=== PATIENT | male | born 1960 | race Asian ===

== ENCOUNTER 2018-10-30 08:38 | Outpatient (CLI) | payer OTHER ==
[2018-10-30] MEDS ORDERED: Gadobenate Dimeglumine 529 MG/1 ML (20ML VIAL) ONE (09:48)
--- NOTE | 2018-10-30 17:01 | MRI ---
MRI OF PELVIS (PROSTATE) WITH AND WITHOUT IV CONTRAST 10/30/18 HISTORY: 58-year-old male with elevated PSA (6.94 on 10/16/18). Benign prostatic hyperplasia with lower urinary tract symptoms. TECHNIQUE: Multiplanar and multisequence MRI of the pelvis was performed with and without IV contrast using the prostate protocol. Review was also performed on an independent 3D workstation. FINDINGS: The prostate measures 5 x 3.5 x 3.6 cm with a volume of 33 mL. No focal abnormal area of restricted diffusion is seen in the peripheral zone. No lentiform area of a bnormally decreased T2 signal is noted in the transitional zone. No focal arterial enhancing mass is seen. The prostatic capsule is intact. The seminal vesicles are i ntact. No pelvic lymphadenopathy seen. The pelvis sidewall is normal. There is diverticular disease o f the sigmoid colon. No abnormal areas of signal replacement are seen on the T1 weighted sequence to suggest osseous metas tatic disease. IMPRESSION: PI-RADS 2: Low (clinically significant prostate cancer is unlikely to be present). POS: [facility]
== END 2018-10-30 08:39 | disposition home or self-care (01) ==
LOC: TBSIIMAG 08:38
PROVIDERS: ATTEND Urology
DX: N40.1 Benign prostatic hyperplasia with lower urinary tract symptoms (principal); R97.20 Elevated prostate specific antigen [PSA]
CPT/HCPCS: 72197; A9577

== ENCOUNTER 2018-11-20 06:46 | Outpatient (CLI) | payer OTHER ==
[2018-11-20 11:48] LABS: Hemoglobin 16.4 g/dL (14.0-18.0); Mean Corpuscular HGB CONC 33.9 g/dL (32.0-36.0); Mean Corpuscular Hemoglobin 29.7 pg (27.0-31.0); Mean Corpuscular Volume 87.8 fL (78.0-98.0); Mean Platelet Volume 8.7 fL (7.4-10.4); Platelet Count 192 thou/uL (130-400); RBC Distribution Width 11.8 % (11.5-14.5); Red Blood Cell (RBC) Count 5.51 mill/uL (4.70-6.10)
[2018-11-20 11:54] LABS: PTT 33.5 SEC (22.9-36.1)
[2018-11-20 12:00] LABS: Bacteria/HPF None Seen HPF (None Seen); Bilirubin Negative (Negative); Blood, Urine Negative (Negative); Clarity Clear (Clear); Glucose, Urine (Dipstick) Normal (Negative); Leukocyte Negative Leu/uL (Negative); Nitrite Negative (Negative); Protein, Urine (Dipstick) Negative (Neg-Trace); RBC/HPF 0-3 HPF (0-3); Squamous Epithelial None Seen HPF (0-3); Urobilinogen Normal mg/dL (Less than 2); WBC/HPF 0-3 HPF (0-3)
[2018-11-20 12:18] LABS: Anion Gap 12 mmol/L (10-20); BUN (Urea Nitrogen) 12 mg/dL (8.4-25.7); Calc. Creatinine Clearance 0 mL/min (70-130); Calcium 9.1 mg/dL (7.8-10.44); Carbon Dioxide 26 mmol/L (22-29); Chloride 105 mmol/L (98-107); Estimated GFR-MDRD Greater than 90; Glucose 94 mg/dL (70-105); Potassium 3.7 mmol/L (3.5-5.1); Sodium 139 mmol/L (136-145)
--- NOTE | 2018-11-20 17:00 | EKG ---
Test Reason : Blood Pressure : / mmHG Vent. Rate : 064 BPM Atrial Rate : 064 BPM P-R Int : 148 ms QRS Dur : 096 ms QT Int : 382 ms P-R-T Axes : 067 056 065 degrees QTc Int : 394 ms Normal sinus rhythm Possible Anterior infarct , age undetermined Abnormal ECG No previous ECGs available Confirmed by DR. Morgan REICH ([id number]) on 11/20/2018 4:59:35 PM Referred By: AKBAR Confirmed By:DR. Morgan REICH
== END 2018-11-20 06:47 | disposition home or self-care (01) ==
LOC: LABBT 06:46
PROVIDERS: ATTEND Urology
DX: Z01.818 Encounter for other preprocedural examination (principal); N40.1 Benign prostatic hyperplasia with lower urinary tract symptoms; R35.0 Frequency of micturition; R97.20 Elevated prostate specific antigen [PSA]; K42.9 Umbilical hernia without obstruction or gangrene; Z87.891 Personal history of nicotine dependence; Z86.19 Personal history of other infectious and parasitic diseases; Z98.890 Other specified postprocedural states
CPT/HCPCS: 80048; 81001; 85027; 85610; 85730; 87086; 93005; 93010

== ENCOUNTER 2018-12-04 06:03 | Day surgery (SDC) | payer OTHER ==
[2018-11-20 10:20] VITALS: BMI 26.6
[2018-12-04] MEDS ORDERED: Levofloxacin 500 mg/D5W 100 ml Premix Bag ONE (06:34)
[2018-12-04] MEDS ORDERED: cefTRIAXone\\ROCEPHIN 2 GM VIAL ONE (06:34)
[2018-12-04] MEDS ORDERED: Sodium Chloride 0.9% 100 ML ONE (06:35)
[2018-12-04] MEDS ORDERED: Fentanyl 100 MCG/2 ML VIAL ONE ×4 (06:37→06:47)
[2018-12-04] MEDS ORDERED: Midazolam HCl 2 mg/2 ml Vial ONE (06:47)
[2018-12-04] MEDS ORDERED: Phenazopyridine HCl 97.5 MG TABLET ONE (08:31)
--- NOTE | 2018-12-04 09:20 | RAD ---
CHEST TWO VIEWS: HISTORY: Preoperative radiograph. COMPARISON: 11/01/2009 FINDINGS: Two views of the chest show normal sized cardiomediastinal silhouette. There is no evidence of consol idation, mass, or pleural effusion. The bones are unremarkable. IMPRESSION: No evidence of acute cardiopulmonary disease. POS: [facility]
[2018-12-04] MEDS ORDERED: Lidocaine 1% PF 5 ML VIAL ONE (11:52)
[2018-12-04] MEDS ORDERED: PHENYLEPHRINE-NS 100 MCG/ML 10 ML SYRINGE ONE (11:52)
[2018-12-04] MEDS ORDERED: Dexamethasone 20 MG/5 ML VIAL ONE (11:52)
[2018-12-04] MEDS ORDERED: Ketorolac Tromethamine 30 MG/ML VIAL ONE (11:52)
[2018-12-04] MEDS ORDERED: Ondansetron PF 4 MG/2 ML Vial ONE (11:52)
[2018-12-04] MEDS ORDERED: PROPOFOL 200 MG/20 ML VIAL ONE (11:52)
--- NOTE | 2018-12-05 10:03 | OP ---
DATE OF PROCEDURE: 12/04/2018 PREOPERATIVE DIAGNOSES: 1. A 58-year-old male with history of elevated PSA, MRI 3-T demonstrating PI- RADS 5 lesion. 2. History of benign prostatic hyperplasia. POSTOPERATIVE DIAGNOSES: 1. A 58-year-old male with history of elevated PSA, MRI 3-T demonstrating PI- RADS 5 lesion. 2. History of benign prostatic hyperplasia. PROCEDURES PERFORMED: Cystoscopy, flexible; transrectal ultrasound volume study ; 12 core needle biopsy; MRI fusion biopsy of region of interest. ANESTHESIA: LMA. COMPLICATIONS: None apparent. DISPOSITION: To recovery room in stable condition. SPECIMEN: 12 core standard prostate biopsy, four cores from region of interest. INTRAOPERATIVE FINDINGS: 1. Bilobar hyperplasia of the prostate, mildly obstructing. 2. UOs about 3 to 4 mm proximal to the bladder neck. 3. No evidence of bladder lesion. 4: Prostate volume 29 g DESCRIPTION OF PROCEDURE: The patient was taken to the operating room, placed in a supine position with the genital area prepped and draped in the usual surgical sterile fashion. He was provided broad-spectrum antibiotics. His preop urine culture is negative. A flexible cystoscope was passed after genital area was formally prepped and draped demonstrating no evidence of urethral stricture. Bilobar hyperplasia of the prostate was noted demonstrating mild obstruction. There was no evidence of intravesical median lobe. No bladder lesion. No stones noted. The ureteral orifices were identified in normal orthotopic position about 3 to 4 mm proximal to the bladder neck. At this time, the flexible cystoscope was removed , and we transitioned the patient to a lateral decubitus position with pressure points padded and protected. A standard transrectal ultrasound volume study was performed first. Digital rectal exam demonstrated no discrete nodularity of concern. We performed a volume study first demonstrating urethral length of 3.76 cm, width of 4.6, height of 3.1 cm with prostate volume estimated to be 29 g. At this time, we then transitioned to our MRI fusion biopsy protocol. The region of interest was found demonstrating that it was 15 mm on the MRI. After the images were appropriately fused, we obtained four cores from the region of interest targeted. Subsequently, we then performed a 12 standard core prostate biopsy in the usual fashion. He tolerated the procedure well. He was transported to the recovery room in stable condition. He will be discharged with ciprofloxacin 500 mg one p.o. b.i.d. for 5 days. He is to continue his Flomax, follow up next week to review pathology. Job ID: [id number] [id number]
== END 2018-12-04 10:40 | disposition home or self-care (01) ==
LOC: SDC 06:03
PROVIDERS: ATTEND Urology
PROC: 0VB03ZX Excision of Prostate, Percutaneous Approach, Diagnostic (ICD-10-PCS; principal; 2018-12-04)
DX: N40.1 Benign prostatic hyperplasia with lower urinary tract symptoms (principal); R35.0 Frequency of micturition; Z79.899 Other long term (current) drug therapy; Z87.891 Personal history of nicotine dependence
CPT/HCPCS: 71046; 88305; J0131; J0696; J1100; J1885; J1956; J2001; J2250; J2405; J2704; J3010; J3490